=== PATIENT | male | born 1955 | race Hispanic/Latino ===

== ENCOUNTER 2017-09-22 15:01 | Inpatient (IN) | payer MEDICARE ==
[2017-09-22 16:02] LABS: #Basophils 0.1 thou/uL (0.0-0.2); #Eosinphils 0.8 thou/uL (0.0-0.7); #Lymphocytes 1.6 thou/uL (1.20-3.40); #Monocytes 0.5 thou/uL (0.11-0.59); #Neutrophils 3.4 thou/uL (1.40-6.50); %Basophils 1.2 % (0.0-1.0); %Eosinophils 13.4 % (0.0-10.0); %Lymphocytes 25.2 % (21.0-51.0); %Monocytes 7.2 % (0.0-10.0); Hematocrit 37.9 % (42.0-52.0); Red Blood Cell (RBC) Count 4.28 mill/uL (4.70-6.10); White Blood Cell (WBC) Count 6.3 thou/uL (4.8-10.8)
[2017-09-22 16:23] LABS: ALT (SGPT) 10 U/L (8-55); AST (SGOT) 15 U/L (5-34); Alkaline Phosphatase 119 U/L (40-150); Anion Gap 15 mmol/L (10-20); BUN (Urea Nitrogen) 13 mg/dL (8.4-25.7); Bilirubin, Total 0.3 mg/dL (0.2-1.2); Calc. Creatinine Clearance 0 mL/min (70-130); Calcium 9.4 mg/dL (7.8-10.44); Carbon Dioxide 29 mmol/L (23-31); Chloride 94 mmol/L (98-107); Estimated GFR-MDRD 55; Globulin 4.5 g/dL (2.4-3.5); Protein, Total 8.6 g/dL (5.8-8.1)
--- NOTE | 2017-09-22 17:11 | RAD ---
LEFT FOOT THREE VIEWS 09/22/17 HISTORY: Foot Pain. History of diabetic ulcer. COMPARISON: An 06/06/17 study. Amputation of the toes are again noted. The fifth metatarsal is again noted to be absent. The changes of the metatarsal heads appear stable as compared to the previous exam. There appears to be an ulcer along the plantar aspect of the foot near the metatarsal heads. Vascular calcifications are seen. IMPRESSION: No plain film evidence for osteomyelitis. Soft tissue ulcer on the plantar surface of the foot. POS: JONATHAN
[2017-09-22] MEDS ORDERED: Piperacillin/Tazobactam 3.375 GM in Sodium Chloride 0.9% 100 ML IVPB ONE (17:15)
[2017-09-22] MEDS ORDERED: Ondansetron HCl/PF 4 MG/2 ML Vial IVP PRN (20:20)
[2017-09-22] MEDS ORDERED: Ondansetron ODT 4 MG TAB SL PRN (20:20)
[2017-09-22 21:37] VITALS: BMI 31.8
[2017-09-22] MEDS ORDERED: cloNIDine 0.2 MG TAB PO SCH (22:30)
[2017-09-22] MEDS ORDERED: Amitriptyline HCl 25 MG TAB PO SCH (22:30)
[2017-09-23] MEDS: Mometasone/Formoterol 120 PUFF INHALER INH SCH ×2 (07:25→18:42)
[2017-09-23] MEDS ORDERED: metFORMIN 500 MG TAB PO SCH (08:00)
[2017-09-23] MEDS: metFORMIN 500 MG TAB PO SCH ×2 (08:06→16:03)
[2017-09-23] MEDS: Gemfibrozil 600 MG TAB PO SCH ×2 (08:09→21:11)
[2017-09-23] MEDS: cloNIDine 0.2 MG TAB PO SCH ×2 (08:10→21:15)
[2017-09-23] MEDS: Insulin NPH/Reg Insulin Hm 300 UNITS/3 ML VIAL SC SCH (08:23)
[2017-09-23] MEDS: Glimepiride 4 MG TAB PO SCH (10:09)
[2017-09-23] MEDS: FLU VACC QS2017-18 36 mo. & older 0.5 ML SYRINGE IM ONE (11:42)
--- NOTE | 2017-09-23 13:40 | MRI ---
MRI OF LEFT FOOT PERFORMED WITH AND WITHOUT CONTRAST ENHANCEMENT: Date: 09/23/17 HISTORY: Plantar foot ulcer evaluation for osteomyelitis. COMPARISON: Plain film examination done yesterday. FINDINGS: There is an ulcer on the plantar aspect of the foot. This is beneath the level of the first metatarsa l head. The toes have all been amputated. There has also been amputation of the fifth metatarsal to t he level of the baes of the fifth metatarsal. There is mild increased STIR signal change within the fourth metatarsal head; however, the signal radha nge on the T1 images is normal and I do not appreciate any significant enhancement associated with th is. There is some minimal enhancement of the soft tissues. The remainder of the heads of the metatars als show no definitive evidence for osteomyelitis. IMPRESSION: 1. Ulcer along the plantar aspect of the foot which is closer to the first metatarsal. There has bee n amputation of the toes and fifth metatarsal. 2. Some mild edema changes are seen in the fourth metatarsal head without definite enhancement or ab normal T1 signal. I would favor that this is related to some reactive osteitis, less likely osteomyel itis, although this possibility is not totally excluded. POS: JONATHAN
[2017-09-23] MEDS: Piperacillin/Tazobactam 3.375 GM, Admixture Fee 1 EACH in Sodium Chloride 0.9% 100 ML IVPB SCH ×2 (14:54→21:18)
[2017-09-23] MEDS ORDERED: Insulin NPH/Reg Insulin Hm 300 UNITS/3 ML VIAL SC SCH (21:00)
[2017-09-23] MEDS ORDERED: Amitriptyline HCl 25 MG TAB PO SCH (21:00)
[2017-09-24] MEDS: Piperacillin/Tazobactam 3.375 GM, Admixture Fee 1 EACH in Sodium Chloride 0.9% 100 ML IVPB SCH ×2 (02:24→09:41)
[2017-09-24] MEDS ORDERED: Vancomycin HCl 1 GM in Premix Bag 1 BAG IVPB SCH (03:00)
[2017-09-24] MEDS: Mometasone/Formoterol 120 PUFF INHALER INH SCH (07:15)
[2017-09-24] MEDS: Gemfibrozil 600 MG TAB PO SCH (07:40)
[2017-09-24] MEDS: Glimepiride 4 MG TAB PO SCH (07:42)
[2017-09-24] MEDS: cloNIDine 0.2 MG TAB PO SCH (07:43)
[2017-09-24] MEDS: metFORMIN 500 MG TAB PO SCH (07:43)
[2017-09-24] MEDS: Insulin NPH/Reg Insulin Hm 300 UNITS/3 ML VIAL SC SCH (07:46)
[2017-09-24 07:51] VITALS: BP 146/85
[2017-09-24 08:36] VITALS: TEMP 97.7
[2017-09-24] MEDS: FLU VACC QS2017-18 36 mo. & older 0.5 ML SYRINGE IM ONE (14:57)
--- NOTE | 2017-09-24 15:56 | CON ---
DATE OF CONSULTATION: 09/24/2017 REASON FOR CONSULTATION: Left foot ulcer. HISTORY OF PRESENT ILLNESS: A 62-year-old patient whom we had seen a couple of times before in 2014 when he presented with a history of type 2 diabetes, neuropathy with partial amputation of right and left feet. He has had a chronic ulcer on the bottom aspect of the left foot area, plantar region below the first MPJ site and developed drainage and some tenderness in the left leg, initially seen by balance wheel hand filer. He was admitted to the emergency room because of the balance wheel hand filer's concern for presence of an abscess. He was admitted and an MRI did not show any abscess. There was some edema of the first metatarsal remnant or actually the first metatarsal. The patient has been given antimicrobial therapy. The balance wheel hand filer did some local debridement without any evidence of abscess either on the MRI or on clinical exam. Currently, denies headaches, no change in visual symptoms, sore throat, odynophagia, dysphagia, no cough or sputum production or chest pain, no abdominal pain or diarrhea. No genitourinary symptoms. PAST MEDICAL HISTORY: Type 2 diabetes, neuropathy, prior partial toe amputations related to complications of neuropathy, hypertension, protracted antimicrobial therapy in the past. ALLERGIES: Include ASPIRIN and IBUPROFEN. SOCIAL HISTORY: He drinks every week. No smoking. FAMILY HISTORY: Noncontributory. CURRENT MEDICATIONS: Elavil, Catapres, Cardizem, Lopid, Amaryl, Hyzaar, insulin , Glucophage, Zosyn, vancomycin. PHYSICAL EXAMINATION: VITAL SIGNS: Showed normal temperature, other vital signs are remarkable. SKIN: Exam shows clean base left round forefoot plantar aspect ulcer. No evidence of cellulitis at this time. All the toes have been amputated in that site. HEENT: Noncontributory. LUNGS: Clear. HEART: Normal. ABDOMEN: Soft and distended. GENITOURINARY: Genital examination normal. EXTREMITIES: Pulses are 1+ in popliteal and dorsalis pedis. Cap refill normal. LABORATORY DATA AND IMAGING: White cell count 6.3, hemoglobin 12.9, and platelets 379. Creatinine 1.33, potassium 3.8, sodium 134. Liver profile normal. CRP 1.13. Microbiology: Two negative blood cultures from June but no further microbiology information submitted. The MRI findings with ulcer in the foot, mild edema changes fourth metatarsal head, but no enhancement. ASSESSMENT AND PLAN: Diabetes type 2 with neuropathy and chronic ulcer with some inflammatory changes and concern for abscess. No evidence of osteomyelitis although there is some early edema of the fourth metatarsal head. At this point, recommend transition to oral Keflex + Minocycline for 3 weeks. Follow up MRI in 3 weeks to make sure that there is no development of osteomyelitis of the fourth metatarsal head. MTDD
--- NOTE | 2017-09-24 17:02 | HP ---
DATE OF ADMISSION: 09/22/2017 CHIEF COMPLAINT: Left foot ulcer and abscess. HISTORY OF PRESENT ILLNESS: Mr. Hines is a 62-year-old male with past medical history of elizabeth betic foot ulcer, diabetes mellitus, and hypertension who came with a longstanding foot ulcer, but go t an infection. According to the doormaker, he felt the patient may have osteomyelitis. He was sen t to the hospital for evaluation and doormaker felt the patient has a possible abscess in that area and the patient states there is pus drainage from that wound. The patient came to the emergency room where he was evaluated and found to have an infected foot ulcer with possible osteomyelitis. The kirsten holman received Zosyn and vancomycin in the ER. Initial x-ray did not show osteomyelitis. He was adm itted for further evaluation and management. PAST MEDICAL HISTORY: 1. Insulin-dependent diabetes mellitus. 2. Hypertension. 3. Hyperlipidemia. 4. Diabetic foot ulcer. 5. Bronchial asthma. 6. Peripheral vascular disease. 7. Gastroesophageal reflux disease. PAST SURGICAL HISTORY: 1. Status post cholecystectomy. 2. Status post left inguinal herniorrhaphy. 3. Status post multiple surgical procedures of right and left foot with incision and drainage of abs cess and debridement and multiple amputations as well. CURRENT MEDICATIONS: The patient is on amitriptyline 25 mg daily, clonidine 0.2 b.i.d., diltiazem 12 0 b.i.d., gemfibrozil 600 b.i.d., Amaryl 8 mg daily, Hyzaar 50/12.5 daily, insulin 70/30, 35 units in the morning and 20 units in the evening, metformin 1000 mg b.i.d., Symbicort 160/4.5 two puffs b.i.d ., omeprazole 20 mg daily. ALLERGIES: IBUPROFEN and ASPIRIN. FAMILY HISTORY: Nothing of interest. SOCIAL HISTORY: The patient lives with family. No history of smoking. No history or alcohol intake . REVIEW OF SYSTEMS: Cardiovascular: No chest pain, no shortness of breath. Respiratory: No fever o r cough. Gastrointestinal: No nausea or vomiting, or abdominal pain. Genitourinary: No distension . Central Nervous System: No headache, no dizziness. PHYSICAL EXAMINATION: GENERAL: The patient is alert, awake, oriented x3. VITAL SIGNS: Temperature 98, pulse 79, respirations 20, blood pressure 120/70. HEENT: Head is normocephalic, atraumatic. Pupils are equal and reactive to light. Nasopharynx is p ink and moist. NECK: Supple. No JVD. LUNGS: Bilateral air entry present, no rales, no rhonchi. HEART: S1 and S2 regular. ABDOMEN: Soft, no distention, no tenderness. Normal bowel sounds. RECTAL: Deferred. CENTRAL NERVOUS SYSTEM: No focal deficits. EXTREMITIES: Left foot ulcer present in the plantar aspect with some pus drainage. LABORATORY DATA AND X-RAY FINDINGS: CBC shows WBCs 6.3, hemoglobin 12.9, hematocrit 37, platelets 37 9. Metabolic panel: Sodium 134, potassium 3.8, chloride 94, CO2 of 29, BUN 13, creatinine 1.3, gluc ose 232. C-reactive protein 1.1. Left foot x-ray showed no evidence of osteomyelitis. ASSESSMENT: 1. Infected left foot ulcer with a possible abscess. 2. Insulin-dependent diabetes mellitus. 3. Hypertension. 4. Peripheral vascular disease. 5. Hyperlipidemia. PLAN: 1. Vital signs q. 4 hours. 2. Activity: As tolerated. 3. Allergies: IBUPROFEN. 4. Hep-Lock. 5. We will continue ADA diet. 6. Zosyn 3.375 grams IV piggyback q. 6 hours. 7. Vancomycin 1 gram IV piggyback q. 12 hours. 8. Accu-Cheks a.c. and at bedtime. 9. Sliding scale mild with regular insulin. 10. We will continue home medications.
== END 2017-09-24 15:06 | disposition home or self-care (01) | DRG 639 ==
LOC: ERS 15:01 → T4-A 18:28
PROVIDERS: ADMIT Internal Medicine; ATTEND Internal Medicine
DX: E11.621 Type 2 diabetes mellitus with foot ulcer (principal); L97.529 Non-pressure chronic ulcer of other part of left foot with unspecified severity; E11.40 Type 2 diabetes mellitus with diabetic neuropathy, unspecified; E11.51 Type 2 diabetes mellitus with diabetic peripheral angiopathy without gangrene; I10 Essential (primary) hypertension; E78.5 Hyperlipidemia, unspecified; K21.9 Gastro-esophageal reflux disease without esophagitis; Z88.8 Allergy status to other drugs, medicaments and biological substances
CPT/HCPCS: 36416; 80053; 83735; 85025; 85652; 86140; 90471; 90682; 96365; 96367; A4216; G0008; J2543; J3370; J7050; Q2036

== ENCOUNTER 2019-11-18 11:43 | Inpatient (IN) | payer MEDICARE ==
[2019-11-18] MEDS ORDERED: Heparin 1,000 UNITS/ML VIAL ONE (12:05)
[2019-11-18 12:48] LABS: #Monocytes 0.9 thou/uL (0.11-0.59); #Neutrophils 8.2 thou/uL (1.40-6.50); %Basophils 0.2 % (0.0-1.0); %Eosinophils 0.4 % (0.0-10.0); %Neutrophils 80.4 % (42.0-75.0); Hemoglobin 9.7 g/dL (14.0-18.0); Mean Corpuscular HGB CONC 33.2 g/dL (32.0-36.0); Mean Corpuscular Hemoglobin 27.5 pg (27.0-31.0); Mean Corpuscular Volume 82.9 fL (78.0-98.0); Mean Platelet Volume 6.5 fL (7.4-10.4); Platelet Count 441 thou/uL (130-400); RBC Distribution Width 12.9 % (11.5-14.5); Red Blood Cell (RBC) Count 3.53 mill/uL (4.70-6.10); White Blood Cell (WBC) Count 10.2 thou/uL (4.8-10.8)
--- NOTE | 2019-11-18 12:54 | RAD ---
PORTABLE CHEST 1 VIEW: Date: 11/18/2019 Time: 1247 hours HISTORY: Foot infection. FINDINGS/IMPRESSION: The heart size is normal. The lungs are expanded with infiltrate in the right lower lung. This is moiz picious for pneumonia. No pneumothoraces or pleural effusions are seen. POS: TPC
[2019-11-18] MEDS ORDERED: Piperacillin/Tazobactam 4.5 GM VIAL ONE (13:14)
[2019-11-18 13:19] LABS: ALT (SGPT) 7 U/L (8-55); AST (SGOT) 14 U/L (5-34); Albumin 3.2 g/dL (3.4-4.8); Alkaline Phosphatase 122 U/L (40-110); Anion Gap 12 mmol/L (10-20); BUN (Urea Nitrogen) 17 mg/dL (8.4-25.7); Bilirubin, Total 0.3 mg/dL (0.2-1.2); Calc. Creatinine Clearance 0 mL/min (70-130); Calcium 8.7 mg/dL (7.8-10.44); Carbon Dioxide 23 mmol/L (23-31); Chloride 93 mmol/L (98-107); Estimated GFR-MDRD 60; Globulin 4.7 g/dL (2.4-3.5); Glucose 217 mg/dL (80-115); Potassium 4.2 mmol/L (3.5-5.1); Protein, Total 7.9 g/dL (5.8-8.1); Sodium 124 mmol/L (136-145)
--- NOTE | 2019-11-18 14:06 | RAD ---
Right foot 3 views: 11/18/2019 COMPARISON: 01/13/2016 HISTORY: Left foot osteomyelitis, cellulitis FINDINGS: The patient is status post partial amputation of the second, third, fourth, and fifth digit s. There is severe degenerative change at the first metatarsal-phalangeal joint. There is soft tissue swelling seen involving the lateral and dorsal aspect of the midfoot/forefoot. T here are foci of gas within the soft tissues adjacent to the base of the fourth and fifth metatarsals. There is bone destruction involving the residual portions of the fourth and fifth metata rsals with new fragmentation at the base of the fifth metatarsal suggesting extensive osteomyelitis with probable pathologic fracture at the base of the fifth metatarsal. There is vascular calcificatio n within the mid foot. IMPRESSION: New soft tissue swelling with soft tissue gas suggesting a gas-forming soft tissue infect ion. Thee is evidence of bone destruction involving the distal aspect of the residual fourth and fifth metatarsals consistent with osteomyelitis. MRI advised.
[2019-11-18] MEDS ORDERED: Dextrose 50% Abboject 50 ML SYRINGE IVP PRN (18:53)
[2019-11-18] MEDS ORDERED: Dextrose 5% in Water 1,000 ML IV PRN (18:53)
[2019-11-18] MEDS ORDERED: Piperacillin/Tazobactam 3.375 GM in Sodium Chloride 0.9% 100 ML IVPB SCH (19:00)
[2019-11-18] MEDS ORDERED: Ondansetron ODT 4 MG TAB PO PRN (19:05)
[2019-11-18] MEDS: Sodium Chloride 0.9% 1,000 ML IV SCH (19:16)
[2019-11-18] MEDS: NPH, Human Insulin Isophane 300 UNIT/3 ML VIAL SC SCH (20:34)
[2019-11-18] MEDS: cloNIDine 0.2 MG TAB PO SCH (20:35)
[2019-11-18] MEDS: Acetaminophen 325 MG TAB PO PRN (20:36)
[2019-11-19] MEDS: Piperacillin/Tazobactam 3.375 GM in Sodium Chloride 0.9% 100 ML IVPB SCH ×4 (00:01→17:51)
--- NOTE | 2019-11-19 00:39 | HP ---
CHIEF COMPLAINT: Right foot infection and cough. HISTORY OF PRESENT ILLNESS: Mr. Hines is a 64-year-old male with past medical history of hypertension, diabetes, peripheral vascular disease, came with a wound in the right foot area for about 2 months. The patient has been going to [facility], was given antibiotic early and has been treating the wound, but the patient feels the wound is getting worse and it started drainage as well as smelling, so he decided to come to the hospital. He did not have any fever, but he does have some cough productive with greenish sputum. No chest pain. No nausea or vomiting. No headache. The patient also has pain in right foot area. The patient came to the ER, where he was evaluated and found to have right foot infection with possible osteomyelitis. The patient's x-ray suggested osteomyelitis. The patient received a dose of Levaquin, vancomycin, Zosyn and admitted for further evaluation and management. PAST MEDICAL HISTORY: 1. Insulin-dependent diabetes mellitus. 2. Hypertension. 3. Hyperlipidemia. 4. Peripheral vascular disease. 5. Gastroesophageal reflux disease. 6. History of bronchial asthma. 7. History of diabetic foot ulcers. PAST SURGICAL HISTORY: Status post cholecystectomy, status post left inguinal herniorrhaphy, status post multiple surgical procedures, right and left foot incision and drainage, abscess debridement as well as multiple amputations. CURRENT MEDICATIONS: The patient is on; 1. Metformin 1000 mg b.i.d. 2. Clonidine 0.2 b.i.d. 3. Omeprazole 20 mg daily. 4. NPH insulin 35 units in the morning, 20 units in the evening. 5. Minocycline 100 mg b.i.d. 6. Losartan with hydrochlorothiazide 1 tablet 50/12.5 daily. 7. Glimepiride 8 mg daily. 8. Gemfibrozil 600 b.i.d. 9. Diltiazem 120 b.i.d. 10. Symbicort inhaler 2 puffs b.i.d. 11. Amitriptyline 25 mg at bedtime. ALLERGIES: ASPIRIN AND IBUPROFEN. FAMILY HISTORY: Nothing contributory. SOCIAL HISTORY: The patient lives with family. No history of smoking. No history of alcohol. REVIEW OF SYSTEMS: CARDIOVASCULAR: No chest pain or shortness of breath. RESPIRATORY: Has cough. No fever. GASTROINTESTINAL: No nausea or vomiting. CENTRAL NERVOUS SYSTEM: No headache. No dizziness. PHYSICAL EXAMINATION: GENERAL: The patient is alert, awake, oriented x3. VITAL SIGNS: Temperature 98, pulse 89, respiration 20, blood pressure 120/60. HEENT: Head is normocephalic, atraumatic. Pupils are equal and reactive. Nasopharynx is pale and dry. Hard and soft, no lesions. Skin turgor decreased. NECK: Supple. No JVD. LUNGS: Bilateral air entry present. No rales, no rhonchi. HEART: S1 and S2 regular. ABDOMEN: Soft. No distention. No tenderness. No abnormal bowel sounds. RECTAL: Deferred. CENTRAL NERVOUS SYSTEM: No focal neurological deficits. EXTREMITIES: Left foot, there is ulceration on the sole of the left foot, and amputation of all toes on the left foot. There is erythema and ulceration on the lateral side of the right foot with amputation of all toes except the great toe. LABORATORY DATA: CBC shows WBC 10, hemoglobin 9.7, hematocrit 29, platelets 441. Metabolic panel; sodium 124, potassium 4.2, chloride 96, CO2 of 23, BUN 17, creatinine 1.2, glucose 217, alkaline phosphatase 122. C-reactive protein 24. X-ray of the foot shows possible osteomyelitis involving 4th and 5th metatarsals. Chest x-ray shows infiltrate in the right lower lobe. ASSESSMENT: 1. Right foot wound infected with osteomyelitis of the right fourth and fifth metatarsals. 2. Infiltrates, right lower lobe, possible pneumonia. 3. Insulin-dependent diabetes mellitus. 4. Hypertension. 5. Diabetes mellitus. 6. Peripheral vascular disease. 7. Hyponatremia. 8. Diabetic foot ulcer, left foot. PLAN: 1. Vital signs q.4 hours. 2. Activities, as tolerated. 3. Allergies, NKDA. 4. IV fluids, normal saline at 100 mL/h. 5. Zosyn 3.375 g IV piggyback q.6 hours. 6. Vancomycin 1 g IV piggyback q.12 hours. 7. Wound Care Team consult. 8. Consult Dr. Lamas as well. 9. Accu-Chek before meals and at bedtime. 10. Sliding scale mild with regular insulin. Continue his home medications. 11. MRI of the right foot. Job ID: [id number]
[2019-11-19] MEDS: Vancomycin 1.5 GRAM/300 ML BAG 1.5 GM in Premix Bag 1 BAG IVPB SCH ×2 (01:10→14:18)
[2019-11-19 04:14] LABS: #Eosinphils 0.2 thou/uL (0.0-0.7); #Lymphocytes 1.3 thou/uL (1.20-3.40); #Monocytes 0.8 thou/uL (0.11-0.59); #Neutrophils 5.9 thou/uL (1.40-6.50); %Basophils 0.5 % (0.0-1.0); %Eosinophils 2.3 % (0.0-10.0); %Monocytes 9.7 % (0.0-10.0); %Neutrophils 71.6 % (42.0-75.0); Hemoglobin 8.4 g/dL (14.0-18.0); Mean Corpuscular HGB CONC 33.3 g/dL (32.0-36.0); Mean Corpuscular Hemoglobin 27.3 pg (27.0-31.0); Mean Platelet Volume 6.8 fL (7.4-10.4); Platelet Count 429 thou/uL (130-400); RBC Distribution Width 12.9 % (11.5-14.5); Red Blood Cell (RBC) Count 3.06 mill/uL (4.70-6.10); White Blood Cell (WBC) Count 8.2 thou/uL (4.8-10.8)
[2019-11-19 04:42] LABS: Anion Gap 12 mmol/L (10-20); BUN (Urea Nitrogen) 14 mg/dL (8.4-25.7); Calc. Creatinine Clearance 98 mL/min (70-130); Calcium 8.6 mg/dL (7.8-10.44); Carbon Dioxide 24 mmol/L (23-31); Chloride 99 mmol/L (98-107); Estimated GFR-MDRD 71; Glucose 121 mg/dL (80-115); Potassium 3.7 mmol/L (3.5-5.1); Sodium 131 mmol/L (136-145)
[2019-11-19] MEDS: Mometasone/Formoterol 120 PUFF INHALER INH SCH ×2 (08:22→19:05)
[2019-11-19] MEDS: Sodium Chloride 0.9% 1,000 ML IV SCH ×2 (08:39→15:06)
[2019-11-19] MEDS: NPH, Human Insulin Isophane 300 UNIT/3 ML VIAL SC SCH ×2 (08:43→21:27)
[2019-11-19] MEDS: Glimepiride 4 MG TAB PO SCH (08:44)
[2019-11-19] MEDS: metFORMIN 500 MG TAB PO SCH ×2 (08:44→17:56)
[2019-11-19] MEDS: Montelukast Sodium 10 mg Tablet PO SCH (08:44)
[2019-11-19] MEDS: cloNIDine 0.2 MG TAB PO SCH ×2 (08:44→20:45)
[2019-11-19] MEDS: Gemfibrozil 600 MG TAB PO SCH ×2 (08:44→17:52)
--- NOTE | 2019-11-19 10:48 | MRI ---
MRI OF THE RIGHT FOOT WITH AND WITHOUT IV CONTRAST: INDICATION: Concern for osteomyelitis and cellulitis. COMPARISON: Right-sided radiograph dated 11/18/2019. CONTRAST: 20 cc of MultiHance. FINDINGS: There are partial amputations involving the 2nd through 4th digits. There is a large subcutaneous ab scess communicating with a dorsolateral plantar ulceration measuring approximately 7.1 x 2.3 x 3.8 cm . There is abnormal signal intensity enhancing involving the 5th and 4th digit metatarsal shafts con sistent with changes of osteomyelitis. There is abnormal signal and enhancement involving the latera l and plantar aspect of the cuboid suspicious for changes of osteomyelitis of the cuboid. There is a healed fracture deformity and dislocation involving the great toe metatarsal head. There is offset at the Lisfranc articulation likely related to a neuropathic osteoarthropathy. There is cellulitis i nvolving the forefoot. There is diffuse musculature atrophy of the intrinsic foot musculature likely related to chronic denervation. There is scattered mid foot and forefoot osteoarthrosis. IMPRESSION: 1. Cellulitis of the forefoot with a large subcutaneous abscess involving the lateral and dorsal asp ect of the forefoot. There is osteomyelitis of the 5th and 4th digit metatarsal stumps. There is al so abnormal signal intensity and enhancement involving the lateral and plantar aspects of the cuboid, also suspicious for osteomyelitis. 2. 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 Scattered osteoarthrosis. 3. Chronic denervation of the right foot. POS: TPC
[2019-11-19] MEDS: Nebivolol HCl 5 MG TAB PO SCH (11:32)
[2019-11-19] MEDS: Insulin Regular 300 UNITS/3 ML VIAL SC PRN (11:47)
[2019-11-19] MEDS ORDERED: Magnevist 469MG/ML 20 ML VIAL ONE (15:17)
--- NOTE | 2019-11-19 17:05 | CON ---
DATE OF CONSULTATION: 11/19/2019 REASON FOR CONSULTATION: Right foot inflammatory process with drainage. HISTORY OF PRESENT ILLNESS: A 64-year-old whom I had seen in 2017 when he presented with a history of type 2 diabetes, neuropathy, partial amputation of right and left feet, and a chronic ulcer at the bottom aspect of the left foot area. There was no evidence of osteomyelitis there and we recommended oral medication for 3 weeks and followup MRI. I have not seen the patient since and it seems that the left foot problems resolved, but now he has developed a problem with drainage in the right lateral forefoot for the past 2 months, which started with a wound in the bottom aspect of lateral right forefoot, initially managed by roof mechanic with oral antimicrobial therapy and wound management, but now he has developed a bulging in the dorsal aspect of the lateral forefoot and with serosanguineous drainage. He was admitted. He has not had any chills or fever. No headaches. No change in visual symptoms, sore throat, odynophagia, or dysphagia. No dyspnea or chest pain. Some cough. Some rhinorrhea. No abdominal pain or diarrhea. No genitourinary symptoms. No neurological symptoms. MEDICAL HISTORY: 1. Type 2 diabetes. 2. Hypertension. 3. Hyperlipidemia. 4. Neuropathy. 5. PVD. 6. Bronchial asthma. 7. Foot ulcers with complications, which resulted in partial amputations of most of the toes, right and left feet. SURGICAL HISTORY: 1. Cholecystectomy. 2. Inguinal herniorrhaphy. 3. Right and left foot surgeries. ALLERGIES: ASPIRIN AND IBUPROFEN. FAMILY HISTORY: Type 2 diabetes. SOCIAL HISTORY: Currently not working. Never smoker. CURRENT MEDICATIONS: 1. Catapres. 2. Dextrose. 3. Cardizem. 4. Lopid. 5. Amaryl. 6. Insulin. 7. Glucophage. 8. Dulera. 9. Singulair. 10. Bystolic. 11. Zofran. 12. Zosyn. 13. Vancomycin. PHYSICAL EXAMINATION: VITAL SIGNS: T-max 100.2, blood pressure 150/70, pulse 86, respirations 18, O2 saturation 97. SKIN: With the elliptical kind of wound shaped ulcer at the bottom aspect of the right forefoot lateral aspect with red tissue at the base and the dorsal aspect that there is a blistering area with serosanguineous drainage coming from the lateral side of this area, where there is a smaller ulceration, which has a pinhole opening and seems to be connecting and communication with all the sites above. There is a yellow dried scab covering that lateral distal aspect. HEENT: Ocular movements conjugate. Oral cavity not remarkable. NECK: Supple. LUNGS: Symmetric. Clear breath sounds. HEART: S1 and S2. Regular rate. No S3 or S4. ABDOMEN: Soft, not distended or tender. No ascites. No bladder distention. EXTREMITIES: Pulses are 1+ in popliteals and cap refill is normal. There is a palpable pulse in dorsalis pedis right side. NEUROLOGIC: Nonfocal otherwise. LABORATORY DATA: White cell count 10.2 and 8.2, hemoglobin 9.7, platelets 441, 80% neutrophils. Sodium 124 and 131 and creatinine 1.05. Liver profile normal, alkaline phosphatase 122. CRP 24.58. Albumin 3.2. The patient had an MRI this morning, which showed cellulitis of forefoot with large subcutaneous abscess involving the lateral and dorsal aspect of the forefoot, osteomyelitis 5th and 4th digit metatarsal stumps and cuboid may have involvement as well. ASSESSMENT: 1. Type 2 diabetes. 2. Neuropathy with now development of an ulcer, which has penetrated and caused osteomyelitis of the remnants of the 4th and 5th metatarsals. PLAN: The patient will need surgical debridement and protracted antimicrobial therapy according to culture results. I think he has sufficient vascular supply for healing of the wound. Job ID: [id number]
[2019-11-19] MEDS ORDERED: Polyethylene Glycol 3350 17 GM Packet PO PRN (22:21)
[2019-11-19] MEDS ORDERED: Polyethylene Glycol 3350 17 GM Packet PO SCH (22:30)
--- NOTE | 2019-11-19 22:49 | CON ---
DATE OF CONSULTATION: 11/19/2019 CONSULTING PHYSICIAN: Tip Bourgeois MD REASON FOR CONSULTATION: Right foot infection. HISTORY OF PRESENT ILLNESS: The patient is a 64-year-old very pleasant diabetic male, well known to myself. He has undergone several prior bilateral operations for diabetic foot infections. He has a well-healed left transmetatarsal amputation, but has a persistent chronic ulcer on the plantar aspect of his left foot. He had previously undergone right foot amputations of toes 2 through 5, with metatarsectomy of at least two of the toes. His right great toe remains in place. He has been cared for outpatient by Podiatry. His last foot operation was in July of 2015, at which time his second metatarsal was debrided. He presents at this time with an obvious infection of the lateral aspect of the right foot with drainage of foul smell and fluids through an open ulceration and changes in the proximal foot and lower leg with edema consistent with infection of the foot. PAST MEDICAL HISTORY: 1. Diabetes with neuropathy. 2. Hyperlipidemia. 3. Hypertension. 4. Peripheral vascular disease. 5. Gastroesophageal reflux disease. PAST SURGICAL HISTORY: Left foot transmetatarsal amputation, cholecystectomy, repair of large left inguinal hernia repair in 2014, amputations of right 2nd through 5th toes and metatarsal bones as well over the course of several operations. MEDICATIONS: Currently include: 1. Metformin. 2. Clonidine. 3. Omeprazole. 4. NPH insulin. 5. Minocycline. 6. Losartan. 7. Glimepiride. 8. Gemfibrozil. 9. Diltiazem. 10. Symbicort. 11. Amitriptyline. ALLERGIES: ASPIRIN AND IBUPROFEN. PERSONAL AND SOCIAL HISTORY: He is . He has a girlfriend. He lives with his little brother. He has six children. He does not smoke. He is disabled. He lives in [place]. Dr. Bourgeois is his primary care physician. REVIEW OF SYSTEMS: Otherwise unremarkable. He denies any history of cardiac problems. Pulmonary; he does currently have a cough and has been diagnosed with right-sided pneumonia as well. PHYSICAL EXAMINATION: VITAL SIGNS: He is afebrile. Pulse is 86 and blood pressure 152/72. GENERAL: A well-developed, well-nourished, pleasant male, resting in bed, in no acute distress. He is alert and oriented x3. HEAD, EYES, EARS, NOSE, AND THROAT: Unremarkable. NECK: Supple without mass or tenderness. LUNGS: Clear to auscultation on the left side. On the right posterior side, there are changes consistent with some pulmonary consolidation. CARDIAC: Regular rate and rhythm without murmur. ABDOMEN: Obese, but soft and nontender. EXTREMITIES: He has palpable femoral pulses bilaterally. Left foot shows chronic ulceration on the plantar aspect underlying first and second metatarsal heads. This ulceration is clean and full-thickness, but measures about 2.5 cm transversely by 1.5 cm. Dressing is replaced on this. Right foot shows his right great toe is laterally deviated. He has a large wound which when pressed, expresses a large volume of foul smelling fluid. I digitally debrided down into the wound. There is no sharp bone edges that I can palpate, but there is a large undermined space and they are consistent with an abscess. There is also substantial large ulceration underlying this on the plantar aspect. LABORATORY DATA: CBC shows white blood cell count of 8.2, hemoglobin is 8.4, platelet count is 429. Chemistries reveal essentially normal electrolytes. BUN and creatinine are within normal limits. Glucose is a little elevated at about 200. He does not have a recent hemoglobin A1c. Microbiology; foot cultures were obtained early today and results are still preliminary revealing multiple organisms. X-rays show evidence of bony destruction of the 4th and 5th metatarsals. It is of what appears to be a fracture dislocation of the first metatarsal bone. ASSESSMENT: The patient with acute infection in lateral right foot. This is extending up into the mid foot. He is getting to the point that I am not sure that a transmetatarsal amputation is possible. The patient still ambulates and requests an attempt to salvage the foot. At his request, I will proceed with incision and drainage and debridement of the foot with subsequent wound care. He understands that there is a good chance that he will require right below-knee amputation. If this does not heal appropriately or allow him to ambulate, then conversion to a below-knee amputation would become necessary. For now, we will forego the below-knee amputation and attempt foot salvage to see what happens. Job ID: [id number]
[2019-11-20] MEDS: Sodium Chloride 0.9% 1,000 ML IV SCH ×2 (00:18→12:00)
[2019-11-20] MEDS: Piperacillin/Tazobactam 3.375 GM in Sodium Chloride 0.9% 100 ML IVPB SCH ×5 (00:19→23:55)
[2019-11-20 01:34] LABS: Vancomycin, Trough 16.8 ug/mL
[2019-11-20] MEDS: Vancomycin 1.5 GRAM/300 ML BAG 1.5 GM in Premix Bag 1 BAG IVPB SCH ×2 (02:20→14:59)
[2019-11-20 04:32] LABS: Hemoglobin A1c 6.5 % (4.0-6.0)
[2019-11-20] MEDS ORDERED: Dextrose 50 % In Water 50 ML SYRINGE ONE (04:55)
[2019-11-20] MEDS: cloNIDine 0.2 MG TAB PO SCH ×2 (08:20→20:54)
[2019-11-20] MEDS: Montelukast Sodium 10 mg Tablet PO SCH (08:20)
[2019-11-20] MEDS: Gemfibrozil 600 MG TAB PO SCH ×2 (08:20→16:43)
[2019-11-20] MEDS: Nebivolol HCl 5 MG TAB PO SCH (08:21)
[2019-11-20] MEDS: Glimepiride 4 MG TAB PO SCH (08:21)
[2019-11-20] MEDS: NPH, Human Insulin Isophane 300 UNIT/3 ML VIAL SC SCH ×2 (08:22→20:55)
[2019-11-20] MEDS: Mometasone/Formoterol 120 PUFF INHALER INH SCH ×2 (09:19→18:05)
[2019-11-20] MEDS ORDERED: Lidocaine 1% PF 5 ML VIAL ONE (10:25)
[2019-11-20] MEDS ORDERED: PROPOFOL 200 MG/20 ML VIAL ONE (10:25)
[2019-11-20] MEDS ORDERED: Ondansetron PF 4 MG/2 ML Vial ONE (10:25)
[2019-11-20] MEDS: Dextrose 5% in Water 1,000 ML IV SCH ×2 (11:45→23:53)
[2019-11-20] MEDS ORDERED: Dextrose 50% Abboject 50 ML SYRINGE ONE (12:04)
[2019-11-20] MEDS ORDERED: Piperacillin/Tazobactam 3.375 GM VIAL ONE (12:27)
[2019-11-20] MEDS ORDERED: Sodium Chloride 0.9% 100 ML ONE ×2 (12:28)
[2019-11-20] MEDS ORDERED: Fentanyl 100 MCG/2 ML VIAL ONE (12:52)
[2019-11-21] MEDS: Vancomycin 1.5 GRAM/300 ML BAG 1.5 GM in Premix Bag 1 BAG IVPB SCH ×2 (02:03→13:43)
[2019-11-21] MEDS: Acetaminophen 325 MG TAB PO PRN (02:05)
[2019-11-21] MEDS: Piperacillin/Tazobactam 3.375 GM in Sodium Chloride 0.9% 100 ML IVPB SCH ×4 (05:14→22:13)
[2019-11-21] MEDS ORDERED: Dextrose 50 % In Water 50 ML SYRINGE ONE (06:03)
[2019-11-21] MEDS: Gemfibrozil 600 MG TAB PO SCH ×2 (07:39→16:24)
[2019-11-21] MEDS: Glimepiride 4 MG TAB PO SCH (07:39)
[2019-11-21] MEDS: Mometasone/Formoterol 120 PUFF INHALER INH SCH ×2 (07:50→18:47)
[2019-11-21] MEDS ORDERED: Morphine 4 MG/ML VIAL SLOW IVP PRN (10:30)
[2019-11-21] MEDS: Montelukast Sodium 10 mg Tablet PO SCH (10:34)
[2019-11-21] MEDS: cloNIDine 0.2 MG TAB PO SCH ×2 (10:34→20:36)
[2019-11-21] MEDS: NPH, Human Insulin Isophane 300 UNIT/3 ML VIAL SC SCH ×2 (10:42→20:36)
[2019-11-21] MEDS: Nebivolol HCl 5 MG TAB PO SCH (10:43)
--- NOTE | 2019-11-21 11:24 | PRG ---
DATE OF SERVICE: 11/21/2019 SUBJECTIVE: Mr. Hines is postoperative day #1 from incision and drainage and extensive debridement of right foot infection. There was an area of foul smelling necrotic tissue, that was debrided as well as extensive osteomyelitis involving the bones of the mid foot. Everything was debrided back to what seemed to be healthy tissue. I am concerned that the extent of the bony involvement is becoming potentially to proximal in the foot to allow for ambulation without continued problems. I think it is a matter of time before he requires a below-knee amputation. Today, he has no complaints. Wound VAC was placed at the time of surgery and this is in place and functioning well, and he has little discomfort. PHYSICAL EXAMINATION: VITAL SIGNS: He is afebrile. Vital signs within normal limits. EXTREMITIES: His exam is unremarkable, and the dressings are intact on his right foot. LABORATORY AND DIAGNOSTIC DATA: There are no new labs today. It is noted that his hemoglobin A1c that was checked yesterday was 6.5. ASSESSMENT AND PLAN: He is doing well following debridement of his right foot infection. I told him that I think there is a reasonable chance with a course of prolonged wound care and weight avoidance on the foot and appropriate antibiotics, that this may heal and allow for ambulation. He understands also that it is entirely possible that this will not be a functional foot for ambulation due to the proximal extent of the disease. He is happy that I did not have to perform a below-knee amputation at this point. Although the cultures at this time only show a gram-negative maulik, this was clearly a polymicrobial infection, that was an anaerobic component of the infection. I suspect he would benefit from a longer course of intravenous antibiotics, but I will defer this to Dr. Lamas, who was already involved in the patient's care. Today is . I will check his wound with the Wound Care Team with dressing change tomorrow. I think he would benefit from an inpatient course of antibiotics probably until the beginning of next week, and at that time, if all appears well, then he should be stable for discharge with a home wound VAC and antibiotics as decided by Dr. Lamas. Job ID: [id number]
[2019-11-21] MEDS: Insulin Regular 300 UNITS/3 ML VIAL SC PRN ×2 (11:36→18:57)
[2019-11-21] MEDS: Dextrose 5% in Water 1,000 ML IV SCH (16:25)
--- NOTE | 2019-11-21 17:12 | PRG ---
DATE OF SERVICE: 11/21/2019 SUBJECTIVE: The patient had surgical debridement by Dr. Stanley, has a negative pressure dressing on place. Denies headaches. No visual symptoms, sore throat, odynophagia, or dysphagia. No cough, sputum production, or chest pain. No abdominal pain or diarrhea. OBJECTIVE: VITAL SIGNS: Essentially normal. LUNGS: Clear. HEART: S1 and S2. Regular rate. ABDOMEN: Soft. Not distended or tender. EXTREMITIES: I saw the photo with the base of the wound with fresh bleeding and quite wide area of debridement. LABORATORY DATA: White cell count 8.2, hemoglobin 8.4, platelets 429. Creatinine is 1.05. Microbiology; gram-negative rods retrieved from the site. The patient is currently receiving Zosyn and vancomycin. ASSESSMENT AND DISCUSSION: Type 2 diabetes, neuropathy with ulcer at the bottom aspect of the right foot stump site lateral distal aspect, status post surgical debridement. The operative report is pending. There is still a possibility that the organism might be susceptible to quinolones, and in that circumstance, we will be able to devise a regimen that allows oral treatment, so I am going to wait until we have the final identification of the organism before we make a decision if a PICC line will be necessary. Job ID: [id number]
[2019-11-22] MEDS ORDERED: Vancomycin HCl 1.25 GM in Sodium Chloride 0.9% 250 ML 250 ML IVPB SCH (02:00)
[2019-11-22] MEDS: Piperacillin/Tazobactam 3.375 GM in Sodium Chloride 0.9% 100 ML IVPB SCH ×4 (04:04→20:52)
[2019-11-22 04:25] LABS: #Basophils 0.1 thou/uL (0.0-0.2); #Eosinphils 0.7 thou/uL (0.0-0.7); #Lymphocytes 1.6 thou/uL (1.20-3.40); #Monocytes 0.4 thou/uL (0.11-0.59); #Neutrophils 3.4 thou/uL (1.40-6.50); %Basophils 1.2 % (0.0-1.0); %Eosinophils 11.2 % (0.0-10.0); %Monocytes 6.6 % (0.0-10.0); %Neutrophils 55.1 % (42.0-75.0); Hemoglobin 9.4 g/dL (14.0-18.0); Mean Corpuscular HGB CONC 32.2 g/dL (32.0-36.0); Mean Corpuscular Hemoglobin 26.7 pg (27.0-31.0); Mean Corpuscular Volume 82.9 fL (78.0-98.0); Mean Platelet Volume 6.7 fL (7.4-10.4); Platelet Count 514 thou/uL (130-400); RBC Distribution Width 12.9 % (11.5-14.5); Red Blood Cell (RBC) Count 3.52 mill/uL (4.70-6.10); White Blood Cell (WBC) Count 6.2 thou/uL (4.8-10.8)
[2019-11-22 04:41] LABS: Anion Gap 9 mmol/L (10-20); BUN (Urea Nitrogen) 9 mg/dL (8.4-25.7); Calc. Creatinine Clearance 111 mL/min (70-130); Calcium 8.4 mg/dL (7.8-10.44); Carbon Dioxide 25 mmol/L (23-31); Chloride 105 mmol/L (98-107); Estimated GFR-MDRD 83; Glucose 73 mg/dL (80-115); Potassium 3.3 mmol/L (3.5-5.1); Sodium 136 mmol/L (136-145)
--- NOTE | 2019-11-22 04:57 | OP ---
DATE OF PROCEDURE: 11/20/2019 PREOPERATIVE DIAGNOSIS: Right foot infection with osteomyelitis. POSTOPERATIVE DIAGNOSIS: Right foot infection with osteomyelitis. OPERATIONS PERFORMED: Incision and drainage of right foot abscess with extensive debridement of necrotic tissue and osteomyelitis. ANESTHESIA: General with laryngeal mask airway. INDICATIONS: The patient is a 64-year-old diabetic male. He has a long history of diabetic foot infections. On his right foot, the toes except for his great toe have been amputated and he has had at least 2 metatarsal resections. He presents at this time at least 4 years after his last operation with a large obvious foul smelling abscess on the on the lateral aspect of the right foot. There is a plantar ulcer that penetrates into the foot and foul smelling drainage. He was taken to the operating room at this time for incision and drainage and debridement. DESCRIPTION OF OPERATION: Informed consent was obtained, patient was taken to the operating room, where general anesthesia was obtained, the patient in supine position. Right foot was prepped with Betadine and draped in sterile fashion. The lateral right foot was opened further. This gave wide exposure to the soft tissues and the bone on the lateral aspect of the foot. Unfortunately, the infection tracked proximally and distally towards the heel. There was exposed and obviously devitalized bone. Due to the prior surgery as well as the somewhat limited visualization, it was difficult to discern, which bones were being palpated at rest, but all palpable irregular bones were removed using rongeur. This certainly included the base of the 5th metatarsal and extended into the bones of the mid and proximal foot. There was a tract of foul smelling necrotic tissue along the plantar aspect and this was also debrided. The skin from the lateral aspect was left in place as essentially a flap, although there was a hole in this plantar aspect. Hemostasis was obtained with electrocautery wound was irrigated. A little debridement was necessary of the distal foot such as the 4th metatarsal extending . After the debridement had been completed, the wound care team presented to place a wound VAC. I am concerned regarding debility for ambulation in light of the lateral and proximal involvement of the foot. For now, however, the infection I believe can be controlled with time, if this is a stable platform for ambulation. Job ID: [id number]
[2019-11-22] MEDS: Glimepiride 4 MG TAB PO SCH (08:19)
[2019-11-22] MEDS: Gemfibrozil 600 MG TAB PO SCH ×2 (08:19→16:41)
[2019-11-22] MEDS: cloNIDine 0.2 MG TAB PO SCH ×2 (08:21→20:50)
[2019-11-22] MEDS: Montelukast Sodium 10 mg Tablet PO SCH (08:22)
[2019-11-22] MEDS: NPH, Human Insulin Isophane 300 UNIT/3 ML VIAL SC SCH ×2 (08:39→20:52)
[2019-11-22] MEDS: Insulin Regular 300 UNITS/3 ML VIAL SC PRN ×2 (08:39→11:52)
[2019-11-22] MEDS: Nebivolol HCl 5 MG TAB PO SCH (08:41)
[2019-11-22] MEDS: Mometasone/Formoterol 120 PUFF INHALER INH SCH ×2 (09:05→19:32)
[2019-11-22] MEDS: Dextrose 5% in Water 1,000 ML IV SCH (11:46)
--- NOTE | 2019-11-22 12:04 | PRG ---
DATE OF SERVICE: 11/22/2019 SUBJECTIVE: The patient does not have any major complaints other than constipation. No respiratory symptoms. OBJECTIVE: VITAL SIGNS: He has been afebrile. BP 160/80, pulse 72. LUNGS: Clear. HEART: S1 and S2. Regular rate. ABDOMEN: Soft. Not distended. EXTREMITIES: Foot with negative pressure dressing. LABORATORY DATA: White cell count 6.2, hemoglobin 9.4, platelets 514. Creatinine 0.92. Microbiology with Staphylococcus aureus and 2 different gram-negative rods. Staphylococcus aureus is methicillin sensitive. The rods have not yet been susceptibility tested. The operative report was reviewed by Dr. Stanley, and infection tracked proximally and distally towards the heel. There was exposed and devitalized bone. All the palpable irregular bones were removed using rongeur including the base of the fifth metatarsal extended into the bones of mid and proximal foot. There was foul smelling necrotic tissue, which was debrided as well. ASSESSMENT AND DISCUSSION: Type 2 diabetes, neuropathy with ulcer at the bottom aspect of the right foot stump site lateral distal and with surgical debridement as noted above with still likely residual significant involvement in the remaining areas of the hindfoot region with a polymicrobial roosevelt, which may reflect partial account of the microbiology since the antimicrobials were initiated prior to the surgical procedure that submitted the samples as noted by Dr. Stanley. We will switch him to vancomycin, cefepime, and Flagyl and treat him at least until January 04. There is a high risk of below-knee amputation. Job ID: [id number]
[2019-11-22] MEDS ORDERED: Acetaminophen 325 MG TAB PO PRN (13:52)
[2019-11-22] MEDS ORDERED: Dextrose 50% Abboject 50 ML SYRINGE IVP PRN (13:53)
[2019-11-22] MEDS ORDERED: Dextrose 5% in Water 1,000 ML IV PRN (13:53)
[2019-11-22] MEDS ORDERED: Ondansetron ODT 4 MG TAB PO PRN (13:55)
[2019-11-22] MEDS ORDERED: Morphine 4 MG/ML VIAL SLOW IVP PRN (13:56)
[2019-11-22] MEDS ORDERED: Polyethylene Glycol 3350 17 GM Packet PO PRN (13:58)
[2019-11-22] MEDS ORDERED: Potassium Chloride 20 MEQ TAB PO SCH (14:00)
--- NOTE | 2019-11-22 15:00 | SPC ---
Sonographic guided left upper extremity PICC placement HISTORY: Osteomyelitis. COMPARISON: None. FINDINGS: After explaining the procedure and answering all questions, the left upper extremity was pr epped and draped in usual sterile fashion. Sterile technique, buffered local anesthesia, sonographic guidance, and a 22-gauge needle were used to carefully access the left basilic vein. Wes dard technique was used to place the tip of a 5 [place] single lumen PICC so that the tip lies at the level of the superior vena cava. The catheter was flushed and secured externally. Patient tolerat ed the procedure well and was returned in unchanged condition. Fluoroscopy time 0.1 minutes. IMPRESSION: Left upper extremity PICC is ready for use.
[2019-11-22] MEDS: Vancomycin HCl 1.25 GM in Sodium Chloride 0.9% 250 ML 250 ML IVPB SCH (15:32)
[2019-11-22 17:01] VITALS: BMI 32.1
--- NOTE | 2019-11-22 19:40 | PRG ---
DATE OF SERVICE: 11/22/2019 SUBJECTIVE: Mr. Hines has no complaints today. I saw him while dressing changes being performed by Wound Care Team. Culture results reveal Staphylococcus aureus and 2 gram-negative rods that have yet to be speciated. I am concerned that the final culture results will not be indicative of the polymicrobial roosevelt that was present within the wound as antibiotics were initiated before cultures were obtained unfortunately. OBJECTIVE: VITAL SIGNS: Reveal that he is afebrile with normal vital signs. EXTREMITIES: His right foot is examined. The wound appears to be clean. There is no foul smell within the wound. Palpation reveals no concerning bony edges. It appears to be well debrided. There is of course still a large open wound. There is a flap to the plantar aspect that may or may not survive as there is a large defect in part of this. LABORATORY DATA: CBC from today shows that his white blood cell count is stable at 6.2, hemoglobin is 9.4. Chemistries are unremarkable except for his elevated glucose levels. ASSESSMENT: The patient is stable following surgery on his right foot infection. He will continue IV antibiotics in the hospital under the direction of Dr. Lamas. I communicated with Dr. Lamas today, and we are in agreement that he would benefit from a prolonged course of IV antibiotics. This will be arranged per Dr. Lamas. He will also continue with wound care using the wound VAC. He is avoiding all weightbearing on the foot until this area is healed. I will see him on Monday with the next dressing change. If his wound appears to remain stable (which I think it will), then I would imagine he will be stable for discharge at that time, assuming that he has outpatient wound care arranged. Job ID: [id number]
[2019-11-22] MEDS: cloNIDine 0.1 MG TAB PO PRN (22:49)
[2019-11-23] MEDS: Vancomycin HCl 1.25 GM in Sodium Chloride 0.9% 250 ML 250 ML IVPB SCH ×2 (02:54→13:48)
[2019-11-23] MEDS: Piperacillin/Tazobactam 3.375 GM in Sodium Chloride 0.9% 100 ML IVPB SCH ×4 (04:44→21:13)
[2019-11-23] MEDS: NPH, Human Insulin Isophane 300 UNIT/3 ML VIAL SC SCH ×2 (07:18→21:13)
[2019-11-23] MEDS ORDERED: Glimepiride 4 MG TAB PO SCH (07:30)
[2019-11-23] MEDS: Nebivolol HCl 5 MG TAB PO SCH (08:02)
[2019-11-23] MEDS: cloNIDine 0.2 MG TAB PO SCH ×2 (08:02→21:13)
[2019-11-23] MEDS: Gemfibrozil 600 MG TAB PO SCH ×2 (08:02→16:28)
[2019-11-23] MEDS: Montelukast Sodium 10 mg Tablet PO SCH (08:03)
[2019-11-23] MEDS: Mometasone/Formoterol 120 PUFF INHALER INH SCH ×2 (08:05→19:23)
[2019-11-23] MEDS: Insulin Regular 300 UNITS/3 ML VIAL SC PRN ×2 (11:36→16:29)
[2019-11-23] MEDS: cloNIDine 0.1 MG TAB PO PRN (12:10)
[2019-11-23 13:21] LABS: Vancomycin, Trough 23.9 ug/mL
[2019-11-23] MEDS ORDERED: hydrALAZINE 20 MG/ML VIAL SLOW IVP SCH (16:30)
[2019-11-23] MEDS ORDERED: Losartan 25 MG TAB PO SCH (18:45)
[2019-11-24] MEDS: Vancomycin HCl 1 GM in Premix Bag 1 BAG IVPB SCH ×2 (02:24→14:12)
[2019-11-24] MEDS: Piperacillin/Tazobactam 3.375 GM in Sodium Chloride 0.9% 100 ML IVPB SCH ×4 (04:21→21:01)
[2019-11-24] MEDS: Mometasone/Formoterol 120 PUFF INHALER INH SCH ×2 (07:39→19:03)
[2019-11-24] MEDS: Gemfibrozil 600 MG TAB PO SCH ×2 (08:42→17:23)
[2019-11-24] MEDS: Nebivolol HCl 5 MG TAB PO SCH (08:43)
[2019-11-24] MEDS: cloNIDine 0.2 MG TAB PO SCH ×2 (08:43→21:01)
[2019-11-24] MEDS: Montelukast Sodium 10 mg Tablet PO SCH (08:44)
[2019-11-24] MEDS: NPH, Human Insulin Isophane 300 UNIT/3 ML VIAL SC SCH ×2 (08:45→21:01)
[2019-11-24] MEDS: Losartan 25 MG TAB PO SCH ×2 (08:48→21:01)
[2019-11-24] MEDS ORDERED: hydrALAZINE 20 MG/ML VIAL SLOW IVP PRN (12:33)
[2019-11-24] MEDS: Insulin Regular 300 UNITS/3 ML VIAL SC PRN ×2 (12:41→16:54)
[2019-11-24] MEDS ORDERED: diphenhydrAMINE 25 MG CAP PO PRN (17:43)
[2019-11-25 01:22] LABS: Vancomycin, Trough 20.5 ug/mL
[2019-11-25] MEDS: Vancomycin HCl 1 GM in Premix Bag 1 BAG IVPB SCH ×2 (02:08→13:41)
[2019-11-25] MEDS: Piperacillin/Tazobactam 3.375 GM in Sodium Chloride 0.9% 100 ML IVPB SCH ×3 (04:04→16:43)
[2019-11-25 05:02] LABS: #Basophils 0.1 thou/uL (0.0-0.2); #Eosinphils 0.8 thou/uL (0.0-0.7); #Lymphocytes 1.9 thou/uL (1.20-3.40); #Monocytes 0.5 thou/uL (0.11-0.59); #Neutrophils 2.9 thou/uL (1.40-6.50); %Basophils 1.3 % (0.0-1.0); %Eosinophils 12.7 % (0.0-10.0); %Lymphocytes 31.4 % (21.0-51.0); %Monocytes 7.3 % (0.0-10.0); %Neutrophils 47.4 % (42.0-75.0); Hemoglobin 9.8 g/dL (14.0-18.0); Mean Corpuscular HGB CONC 32.1 g/dL (32.0-36.0); Mean Corpuscular Hemoglobin 26.7 pg (27.0-31.0); Mean Platelet Volume 6.7 fL (7.4-10.4); Platelet Count 581 thou/uL (130-400); RBC Distribution Width 13.2 % (11.5-14.5); Red Blood Cell (RBC) Count 3.66 mill/uL (4.70-6.10); White Blood Cell (WBC) Count 6.1 thou/uL (4.8-10.8)
[2019-11-25 05:21] LABS: Anion Gap 13 mmol/L (10-20); BUN (Urea Nitrogen) 11 mg/dL (8.4-25.7); Calc. Creatinine Clearance 98 mL/min (70-130); Calcium 8.7 mg/dL (7.8-10.44); Carbon Dioxide 25 mmol/L (23-31); Chloride 103 mmol/L (98-107); Estimated GFR-MDRD 72; Glucose 122 mg/dL (80-115); Potassium 3.6 mmol/L (3.5-5.1); Sodium 137 mmol/L (136-145)
[2019-11-25] MEDS: Mometasone/Formoterol 120 PUFF INHALER INH SCH ×2 (07:36→18:13)
[2019-11-25] MEDS: cloNIDine 0.2 MG TAB PO SCH ×2 (08:58→20:15)
[2019-11-25] MEDS: Montelukast Sodium 10 mg Tablet PO SCH (08:59)
[2019-11-25] MEDS: Gemfibrozil 600 MG TAB PO SCH ×2 (08:59→16:42)
[2019-11-25] MEDS: Losartan 25 MG TAB PO SCH ×3 (08:59→20:14)
[2019-11-25] MEDS: NPH, Human Insulin Isophane 300 UNIT/3 ML VIAL SC SCH ×2 (09:00→20:26)
[2019-11-25] MEDS: Nebivolol HCl 5 MG TAB PO SCH (09:06)
--- NOTE | 2019-11-25 09:19 | PRG ---
DATE OF SERVICE: 11/25/2019 SUBJECTIVE: Mr. Hines is postoperative day #5 from the incision and drainage with extensive debridement of osteomyelitis of the right foot. He continues on antibiotics per Dr. Lamas. A PICC line was placed on Monday in anticipation of discharge with long-term IV antibiotics. He is currently on Zosyn and vancomycin. He has no complaints. His wound VAC remained in place over the weekend and was removed today with his dressing . PHYSICAL EXAMINATION: Vital signs, temperature is 97.7, pulse is 76, blood pressure . The remainder of his physical exam is unremarkable. Attention was paid to his right lower extremity. He has substantially less edema at his right ankle than he did before the surgery, consistent with drainage of the infectious process. The wound is healing and granulating nicely. He does have some exposed bone at the proximal aspect of the wound. Some of this was minimally debrided with rough abrasion. Some of the callus was removed today. The plantar loose flap is still viable at this point, does not need to be excised. The wound actually seems to have increased in size substantially since his surgery 5 days ago. LABORATORY DATA: His white blood cell count remains normal at 6.1 with the hemoglobin of 9.8. Aside from his glucose elevations, his electrolytes are otherwise unremarkable. His microbiology has not been speciated any further beyond findings of Staphylococcus aureus and 2 gram-negative rods. ASSESSMENT: The patient is doing well following right foot surgery for an extensive right foot infection with osteomyelitis. He will need to continue wound VAC for the next several weeks and maintain strict weightbearing avoidance. He will continue intravenous antibiotics per Dr. Lamas. He is cleared for discharge at any time once his wound VAC has been approved and he has Home Health Nursing for the dressing changes. His IV antibiotics and administration will need to be arranged per Dr. Lamas. He is stable for discharge today if this is all arranged. Job ID: [id number]
[2019-11-25] MEDS: Insulin Regular 300 UNITS/3 ML VIAL SC PRN (16:39)
[2019-11-25] MEDS ORDERED: Hydrochlorothiazide 25 MG TAB PO SCH (19:00)
[2019-11-25] MEDS: metroNIDAZOLE 500 MG TAB PO SCH (20:14)
[2019-11-25] MEDS: Cefepime 2 GM in Sodium Chloride 0.9% 100 ML IVPB SCH (20:15)
[2019-11-26 04:02] VITALS: TEMP 98.2
[2019-11-26] MEDS: Mometasone/Formoterol 120 PUFF INHALER INH SCH (07:16)
[2019-11-26] MEDS: Gemfibrozil 600 MG TAB PO SCH ×2 (08:12→15:27)
[2019-11-26] MEDS: NPH, Human Insulin Isophane 300 UNIT/3 ML VIAL SC SCH (08:41)
[2019-11-26] MEDS: Losartan 25 MG TAB PO SCH ×2 (08:42→08:50)
[2019-11-26] MEDS: metroNIDAZOLE 500 MG TAB PO SCH ×2 (08:44→15:27)
[2019-11-26] MEDS: Montelukast Sodium 10 mg Tablet PO SCH (08:44)
[2019-11-26] MEDS: cloNIDine 0.2 MG TAB PO SCH (08:44)
[2019-11-26] MEDS: Nebivolol HCl 5 MG TAB PO SCH (08:50)
[2019-11-26] MEDS ORDERED: Hydrochlorothiazide 25 MG TAB PO SCH (09:00)
--- NOTE | 2019-11-26 09:05 | PRG ---
DATE OF SERVICE: 11/26/2019 Mr. Hines is status post extensive drainage and debridement of a right foot infection extended into his hindfoot and midfoot. His surgery was on November 20. He has a wound VAC in place and intravenous antibiotics. He has been cleared for discharge by myself and Dr. Lamas. Apparently, the plan is for discharge home today with continued outpatient wound care and IV antibiotics. The patient exhibits good understanding of my recommendation to avoid all weightbearing on the foot until this area is healed. I will see him back in my office in 2 weeks. Other than his antibiotics, which will be administered per Dr. Lamas, he requires no new discharge medications. Job ID: [id number]
--- NOTE | 2019-11-26 09:47 | EKG ---
Test Reason : PPREOP Blood Pressure : / mmHG Vent. Rate : 080 BPM Atrial Rate : 080 BPM P-R Int : 174 ms QRS Dur : 084 ms QT Int : 368 ms P-R-T Axes : 057 043 024 degrees QTc Int : 424 ms Normal sinus rhythm Normal ECG When compared with ECG of 28-MAY-2007 03:12, No significant change was found Confirmed by CHERYL GARY (2) on 11/26/2019 9:46:49 AM Referred By: LEONORA Confirmed By:CHERYL GARY
[2019-11-26] MEDS: Cefepime 2 GM in Sodium Chloride 0.9% 100 ML IVPB SCH (10:19)
[2019-11-26 11:49] VITALS: BP 136/71
[2019-11-26] MEDS: Insulin Regular 300 UNITS/3 ML VIAL SC PRN (12:46)
--- NOTE | 2019-11-28 10:06 | PQF ---
HILARIA DE LEÓN VENKAT R MD [id number] CLINICAL DOCUMENTATION CLARIFICATION FORM: POST DISCHARGE Addendum to original discharge summary date: ____ Late entry note date: __ DATE:11/28/2019 ATTN: FLY NORTH MD Please exercise your independent, professional judgment in responding to the clarification form. Clinical indicators are provided on the bottom of this form for your review Please check appropriate box(s) to clarify if the following diagnosis has been ruled in or ruled out: Pneumonia [ ] Ruled in diagnosis [ ] Continue to treat [ ] Resolved [ y ] Ruled out diagnosis [ ] Cannot rule out diagnosis [ ] Other diagnosis [ ] Unable to determine For continuity of documentation, please document condition throughout progress notes and discharge summary. Thank You. CLINICAL INDICATORS - SIGNS / SYMPTOMS / LABS He did not have any fever but he dose have some cough productive with greenish sputum-Documented in H&P on 11/18 by Fly North MD Chest X ray shows infiltrate in the right lower lobe-Documented in H&P on 11/18 by Fly North MD Infiltrate in the right lower lobe, possible pneumonia-Documented in H&P on by Fly North MD RISK FACTORS He did not have any fever but he dose have some cough productive with greenish sputum-Documented in H&P on 11/18 by Fly North MD TREATMENTS The patient received a dose of Levaquin, vancomycin, Zosyn-Documented in H&P on 11/18 by Fly North MD [employer] (This form is maintained as a part of the permanent medical record) 2014 [email or web address] All Rights Reserved [email or web address] [not provided] [email or web address]
== END 2019-11-26 15:51 | disposition home or self-care (01) | DRG 629 ==
LOC: ERS 11:43 → UNDOADMIN 15:02 → ONC 15:02 → UNDODISIN 11-22 13:12
PROVIDERS: ADMIT Internal Medicine; ATTEND Internal Medicine
PROC: 02HV33Z Insertion of Infusion Device into Superior Vena Cava, Percutaneous Approach (ICD-10-PCS; principal; 2019-11-22)
PROC: 0QBN0ZZ Excision of Right Metatarsal, Open Approach (ICD-10-PCS; 2019-11-22)
DX: E11.69 Type 2 diabetes mellitus with other specified complication (principal); M86.8X7 Other osteomyelitis, ankle and foot; E87.1 Hypo-osmolality and hyponatremia; L02.611 Cutaneous abscess of right foot; E78.5 Hyperlipidemia, unspecified; K21.9 Gastro-esophageal reflux disease without esophagitis; E11.51 Type 2 diabetes mellitus with diabetic peripheral angiopathy without gangrene; E11.621 Type 2 diabetes mellitus with foot ulcer; L97.529 Non-pressure chronic ulcer of other part of left foot with unspecified severity; Z89.422 Acquired absence of other left toe(s); Z90.49 Acquired absence of other specified parts of digestive tract; Z88.8 Allergy status to other drugs, medicaments and biological substances; Z79.4 Long term (current) use of insulin; Z79.84 Long term (current) use of oral hypoglycemic drugs
CPT/HCPCS: 36415; 36416; 36569; 71045; 80048; 80053; 80202; 83036; 83605; 85025; 85652; 86140; 87070; 87077; 87186; 87205; 93005; 93010; 96365; 96367; A9579; C1751; J0360; J0692; J1644; J1815; J1956; J2001; J2405; J2543; J2704; J3010; J3370; J3490; J7050; Q0162; Q0163

== ENCOUNTER 2020-03-04 11:43 | Outpatient (CLI) | payer MEDICARE ==
--- NOTE | 2020-03-04 13:26 | RAD ---
THREE VIEWS OF THE RIGHT FOOT: 03/04/20 COMPARISON: 11/18/19 HISTORY: Follow-up after surgery. FINDINGS: Three views of the right foot shows the patient to be status post extensive surgery of the foot. The patient is status post amputation of the second, third, and fourth toes to the metatarsals. The proxi mal remaining fifth metatarsal has been removed since the prior examination. The air seen in the soft tissues of the foot has resolved. Extensive degenerative changes are seen in the tarsometatarsal steve nt of the great toe. Vascular calcifications are seen. No osseous erosions are seen at this time. IMPRESSION: Extensive postsurgical changes of the right foot as above. POS: EAA
== END 2020-03-04 11:44 | disposition home or self-care (01) ==
LOC: BICRAD 11:43
PROVIDERS: ATTEND Specialist
DX: S91.301A Unspecified open wound, right foot, initial encounter (principal); Z89.421 Acquired absence of other right toe(s)

== ENCOUNTER 2021-02-09 11:02 | Outpatient (CLI) | payer MEDICARE | END 2021-02-09 11:03 | disposition home or self-care (01) | LOC: SCSRAD 11:02 | PROVIDERS: ATTEND Family Medicine | DX: J40 Bronchitis, not specified as acute or chronic (principal) | CPT/HCPCS: 71046 ==